=== PATIENT | female | born 1960 | race Two or more races ===

== ENCOUNTER 2023-05-31 16:38 | Inpatient (IN) | payer OTHER ==
[~2023-05-31] VITALS: Ht 160 cm; Wt 79.4 kg
[2023-05-31 18:18] LABS: Basophils # (auto) 0 10 ^3/uL (0-0.2); Basophils % (auto) 0.2 % (0.0-2.0); Eosinophils # (auto) 0 10 ^3/uL (0-0.8); Eosinophils % (auto) 0.1 % (0.0-7.0); Hematocrit 43.4 % (36.0-46.0); Lymphocytes # (auto) 0.9 10 ^3/uL (0.4-5.4); Lymphocytes % (auto) 8.8 % (10.0-50.0); Mean Corpuscular Hemoglobin 29.6 pg (28.0-32.0); Mean Corpuscular Hgb Conc. 34.5 g/dL (32.0-36.0); Mean Corpuscular Volume 85.8 fL (80.0-100.0); Monocytes # (auto) 0.8 10 ^3/uL (0-1.3); Monocytes % (auto) 7.5 % (0.0-12.0); Neutrophils # (auto) 8.7 10 ^3/uL (1.6-8.6); Neutrophils % (auto) 83.4 % (37.0-80.0); Red Blood Cells 5.06 10^6/uL (4.0-5.20); Red Cell Distribution Width 12.7 % (11.8-14.3); White Blood Cell 10.4 10^3/uL (4.4-10.8)
[2023-05-31 18:57] LABS: Alanine Aminotransferase 15 U/L (7-40); Albumin 4.2 g/dL (3.2-4.8); Alkaline Phosphatase 101 U/L (46-116); Anion Gap 10 (5-15); Aspartate Aminotransferase 16 U/L (13-40); Bilirubin, Total 0.9 mg/dL (0.2-1.0); Blood Urea Nitrogen 11 mg/dL (9-23); Carbon Dioxide 22 mmol/L (20-30); Chloride 92 mmol/L (98-107); Glucose 283 mg/dL (74-106); Potassium 3.6 mmol/L (3.5-5.1); Sodium 124 mmol/L (136-145)
[2023-05-31 18:58] LABS: Total Protein 7.1 g/dL (5.7-8.2)
[2023-05-31 19:10] LABS: Lipase 34 U/L (12-53)
[2023-05-31] MEDS ORDERED: SODIUM CHLORIDE 0.9% 1,000 ML IV ONE ×2 (20:15→21:15)
[2023-05-31] MEDS ORDERED: MORPHINE SULFATE INJ 2 MG/ml SYRG IV ONE (20:30)
[2023-05-31] MEDS ORDERED: PIPERACILLIN-TAZOB 3.375GM 100 ML IV ONE (20:30)
[2023-05-31] MEDS ORDERED: ONDANSETRON HCL 4 MG/2 ML VIAL IV ONE (20:30)
[2023-05-31] MEDS ORDERED: SODIUM CHLORIDE 0.9% 100 ML IV ONE (20:45)
[2023-05-31 21:19] LABS: INR 1.17 (0.9-1.15); Partial Thromboplastin Time 31.4 SEC (24.5-34.5); Prothrombin Time 12.2 sec (9.3-11.8)
[2023-05-31] MEDS ORDERED: ONDANSETRON HCL 4 MG/2 ML VIAL IV PRN (22:00)
[2023-05-31] MEDS: SODIUM CHLORIDE 0.9% 1,000 ML IV SCH (22:00)
[2023-05-31] MEDS ORDERED: DEXTROSE (50%) 50ML SYRG IV PRN (22:00)
[2023-06-01] VITALS (7 sets, daily range): BP systolic 148–149; BP diastolic 75–76; PULSE 90–101; RESP 16–20; TEMP 98.7–99.1; O2SAT 93–98
[2023-06-01] MEDS: ACCU-CHEK COMFORT CURVE STRIP VI SCH ×5 (01:20→23:41)
[2023-06-01] MEDS: InsuLIN REG 1unit/0.01ml Soln (100units/ml) SC SCH ×5 (01:24→23:55)
[2023-06-01 01:56] LABS: Urine Bacteria NONE SEEN /hpf (None Seen); Urine Blood 2+ /uL (Negative); Urine Clarity Clear (Clear); Urine Color Colorless (Yellow); Urine Mucus FEW (None Seen); Urine Protein, UAD 1+ (Negative); Urine Specific Gravity 1.027 (1.001-1.035); Urine Urobilinogen Normal (Negative); Urine WBC 2 /hpf (0 - 5); Urine pH 5.5 (5.0-8.0)
[2023-06-01] MEDS ORDERED: MORPHINE SULFATE INJ 2 MG/ml SYRG IM ONE (02:00)
[2023-06-01] MEDS ORDERED: ACETAMINOPHEN 325 MG TAB PO ONE (02:45)
[2023-06-01 06:20] LABS: Basophils # (auto) 0 10 ^3/uL (0-0.2); Basophils % (auto) 0.1 % (0.0-2.0); Eosinophils # (auto) 0 10 ^3/uL (0-0.8); Eosinophils % (auto) 0.1 % (0.0-7.0); Hematocrit 41.5 % (36.0-46.0); Hemoglobin 14.6 g/dL (12.2-16.2); Lymphocytes # (auto) 0.9 10 ^3/uL (0.4-5.4); Lymphocytes % (auto) 9.3 % (10.0-50.0); Mean Corpuscular Hgb Conc. 35.1 g/dL (32.0-36.0); Mean Corpuscular Volume 85.3 fL (80.0-100.0); Monocytes # (auto) 0.6 10 ^3/uL (0-1.3); Neutrophils # (auto) 8.2 10 ^3/uL (1.6-8.6); Neutrophils % (auto) 84.5 % (37.0-80.0); Nucleated Red Blood Cells % 0.1 %; Red Blood Cells 4.87 10^6/uL (4.0-5.20); Red Cell Distribution Width 12.4 % (11.8-14.3); White Blood Cell 9.7 10^3/uL (4.4-10.8)
[2023-06-01] MEDS: PIPERACILLIN-TAZOB 3.375GM 100 ML IV SCH ×5 (06:21→23:41)
[2023-06-01 06:36] LABS: Chloride 99 mmol/L (98-107); Potassium 3.2 mmol/L (3.5-5.1)
[2023-06-01 06:37] LABS: Anion Gap 11 (5-15); Calcium 8.2 mg/dL (8.5-10.1); Carbon Dioxide 19 mmol/L (20-30)
[2023-06-01 06:39] LABS: Sodium 129 mmol/L (136-145)
[2023-06-01 06:42] LABS: Blood Urea Nitrogen 9 mg/dL (9-23); Glucose 229 mg/dL (74-106)
[2023-06-01] MEDS: SODIUM CHLORIDE 0.9% 1,000 ML IV SCH ×2 (10:20→21:32)
[2023-06-01] MEDS: MORPHINE SULFATE INJ 2 MG/ml SYRG IV PRN (16:05)
[2023-06-02] MEDS: MORPHINE SULFATE INJ 2 MG/ml SYRG IV PRN (00:56)
[2023-06-02 05:00] VITALS: BP 140/77; PULSE 97; RESP 16; TEMP 98.3; O2SAT 98
[2023-06-02] MEDS: ACCU-CHEK COMFORT CURVE STRIP VI SCH ×4 (06:01→23:33)
[2023-06-02] MEDS: PIPERACILLIN-TAZOB 3.375GM 100 ML IV SCH ×3 (06:01→21:28)
[2023-06-02] MEDS: InsuLIN REG 1unit/0.01ml Soln (100units/ml) SC SCH ×4 (06:10→23:33)
[2023-06-02 06:12] LABS: Basophils # (auto) 0 10 ^3/uL (0-0.2); Basophils % (auto) 0.1 % (0.0-2.0); Eosinophils # (auto) 0 10 ^3/uL (0-0.8); Eosinophils % (auto) 0.1 % (0.0-7.0); Hematocrit 42.7 % (36.0-46.0); Hemoglobin 14.6 g/dL (12.2-16.2); Lymphocytes % (auto) 7.3 % (10.0-50.0); Mean Corpuscular Hemoglobin 29.4 pg (28.0-32.0); Mean Corpuscular Hgb Conc. 34.3 g/dL (32.0-36.0); Mean Corpuscular Volume 85.9 fL (80.0-100.0); Monocytes # (auto) 1.1 10 ^3/uL (0-1.3); Monocytes % (auto) 8.2 % (0.0-12.0); Neutrophils # (auto) 11.5 10 ^3/uL (1.6-8.6); Neutrophils % (auto) 84.3 % (37.0-80.0); Nucleated Red Blood Cells % 0.1 %; Red Blood Cells 4.97 10^6/uL (4.0-5.20); Red Cell Distribution Width 12.9 % (11.8-14.3); White Blood Cell 13.7 10^3/uL (4.4-10.8)
[2023-06-02 06:15] LABS: Anion Gap 12 (5-15); Calcium 8.2 mg/dL (8.5-10.1); Carbon Dioxide 20 mmol/L (20-30); Chloride 100 mmol/L (98-107); Potassium 2.7 mmol/L (3.5-5.1); Sodium 132 mmol/L (136-145)
[2023-06-02 06:21] LABS: BUN/Creatinine Ratio 20.4 (10.0-20.0); Blood Urea Nitrogen 10 mg/dL (9-23); Glucose 189 mg/dL (74-106)
[2023-06-02] MEDS ORDERED: POTASSIUM CHLORIDE 80 MEQ, LIDOCAINE 1% (LOCAL ANESTH.) 6 ML in SODIUM CHL 0.9% 500 ML IV ONE (08:45)
[2023-06-02 08:59] VITALS: BP 140/78; PULSE 94; RESP 18; TEMP 98.2; O2SAT 94
[2023-06-02] MEDS: SODIUM CHLORIDE 0.9% 1,000 ML IV SCH ×2 (09:18→21:29)
[2023-06-02 13:00] VITALS: BP 131/74; PULSE 94; RESP 18; TEMP 97.8; O2SAT 93
[2023-06-02 17:00] VITALS: BP 139/73; PULSE 100; RESP 20; TEMP 99.2; O2SAT 93
[2023-06-02 22:00] VITALS: BP 145/70; PULSE 93; RESP 18; TEMP 98.3; O2SAT 93
[2023-06-03] MEDS: PIPERACILLIN-TAZOB 3.375GM 100 ML IV SCH ×4 (03:17→23:19)
[2023-06-03 05:00] VITALS: BP 133/76; PULSE 102; RESP 19; TEMP 99.3; O2SAT 95
[2023-06-03 05:31] LABS: Basophils # (auto) 0.1 10 ^3/uL (0-0.2); Basophils % (auto) 0.3 % (0.0-2.0); Eosinophils # (auto) 0 10 ^3/uL (0-0.8); Eosinophils % (auto) 0.1 % (0.0-7.0); Hematocrit 39.7 % (36.0-46.0); Hemoglobin 13.6 g/dL (12.2-16.2); Lymphocytes # (auto) 1.2 10 ^3/uL (0.4-5.4); Lymphocytes % (auto) 6.8 % (10.0-50.0); Mean Corpuscular Hemoglobin 29.5 pg (28.0-32.0); Mean Corpuscular Hgb Conc. 34.3 g/dL (32.0-36.0); Mean Corpuscular Volume 85.9 fL (80.0-100.0); Monocytes # (auto) 1.6 10 ^3/uL (0-1.3); Neutrophils # (auto) 14.7 10 ^3/uL (1.6-8.6); Neutrophils % (auto) 83.8 % (37.0-80.0); Nucleated Red Blood Cells % 0.1 %; Red Blood Cells 4.63 10^6/uL (4.0-5.20); Red Cell Distribution Width 13.3 % (11.8-14.3); White Blood Cell 17.5 10^3/uL (4.4-10.8)
[2023-06-03 05:54] LABS: Alanine Aminotransferase 14 U/L (7-40); Albumin 3.2 g/dL (3.2-4.8); Alkaline Phosphatase 101 U/L (46-116); Anion Gap 12 (5-15); Aspartate Aminotransferase 17 U/L (13-40); BUN/Creatinine Ratio 33.3 (10.0-20.0); Blood Urea Nitrogen 15 mg/dL (9-23); Calcium 8.3 mg/dL (8.5-10.1); Carbon Dioxide 20 mmol/L (20-30); Chloride 104 mmol/L (98-107); Glucose 238 mg/dL (74-106); Potassium 3.4 mmol/L (3.5-5.1); Sodium 136 mmol/L (136-145)
[2023-06-03 05:55] LABS: Bilirubin, Total 0.5 mg/dL (0.2-1.0); Total Protein 5.6 g/dL (5.7-8.2)
[2023-06-03] MEDS: InsuLIN REG 1unit/0.01ml Soln (100units/ml) SC SCH ×4 (06:41→23:40)
[2023-06-03] MEDS: ACCU-CHEK COMFORT CURVE STRIP VI SCH ×4 (06:41→23:40)
[2023-06-03 09:00] VITALS: BP 134/72; PULSE 90; RESP 18; TEMP 98.9; O2SAT 93
[2023-06-03] MEDS: SODIUM CHLORIDE 0.9% 1,000 ML IV SCH ×2 (09:20→20:36)
[2023-06-03 13:00] VITALS: BP 146/70; PULSE 93; RESP 17; TEMP 98.7; O2SAT 92
[2023-06-03] MEDS ORDERED: LIDOCAINE 2%HCL (LOCAL ANESTH.) INJ 10ml MDV ONE (13:17)
[2023-06-03] MEDS ORDERED: EPINEPHrine HCL 1 MG/1 ML AMP ONE (13:18)
[2023-06-03] MEDS ORDERED: ACETAMINOPHEN IV 1000 MG/100ML (10MG/ML) IV ONE (13:30)
[2023-06-03] MEDS ORDERED: GABAPENTIN 400 MG CAP PO ONE (13:30)
[2023-06-03] MEDS ORDERED: CELECOXIB 100 MG CAP PO ONE (13:30)
[2023-06-03] MEDS ORDERED: LIDOCAINE W/ EPINEPHRINE 2% INJ 20ML VIAL ONE (13:31)
[2023-06-03] MEDS ORDERED: BUPIVACAINE 0.5% P/F INJ 10 ML VIAL ONE (13:31)
[2023-06-03] MEDS ORDERED: PROPOFOL 10 MG/ML 20 ML IV ONE (13:41)
[2023-06-03] MEDS ORDERED: ONDANSETRON HCL 4 MG/2 ML VIAL ONE (13:42)
[2023-06-03] MEDS ORDERED: GLYCOPYRROLATE 0.2 MG/ML 1ML VIAL ONE (13:42)
[2023-06-03] MEDS ORDERED: SUGAMMADEX 200mg/2ml Vial (100MG/ML) IV ONE (13:42)
[2023-06-03] MEDS ORDERED: KETOROLAC TROMETH 30 MG/ML 1ML VIAL ONE (13:42)
[2023-06-03] MEDS ORDERED: ROCURONIUM 10MG/ML 10ML VIAL IV ONE (13:42)
[2023-06-03] MEDS ORDERED: fentaNYL CITRATE 100 MCG/2 ML VL ONE (13:42)
[2023-06-03] MEDS ORDERED: DexAMETHasone SOD PHOS 10MG/1ML VIAL INJ ONE ×2 (13:42→14:38)
[2023-06-03] MEDS ORDERED: ceFAZolin 2 GM/D5W100ml 100 ML IV ONE (14:00)
[2023-06-03] MEDS ORDERED: SODIUM CHLORIDE LOCK 30 ML ONE (14:38)
[2023-06-03] MEDS ORDERED: ONDANSETRON HCL 4 MG/2 ML VIAL IV PRN ×2 (15:15→15:45)
[2023-06-03] MEDS: POTASSIUM CHLORIDE 20 MEQ in D5W/LACTATED RINGERS 1,000 ML IV SCH (15:15)
[2023-06-03] MEDS: SOD CHL 0.45% 1,000 ML IV SCH (15:15)
[2023-06-03 15:21] VITALS: RESP 17; O2SAT 97
[2023-06-03] MEDS ORDERED: oxyCODONE HCL 5MG TAB PO PRN (15:45)
[2023-06-03] MEDS ORDERED: FLUMAZENIL 0.1 MG/ML INJ 10ML MDV IV PRN (15:45)
[2023-06-03] MEDS ORDERED: hydrALAZINE HCL 20 MG/ML VL IV PRN (15:45)
[2023-06-03] MEDS ORDERED: NALOXONE HCL 0.4 MG/ML VIAL IV PRN (15:45)
[2023-06-03] MEDS ORDERED: HYDROmorphone HCL 2 MG/ML VL/or syr IV PRN (15:45)
[2023-06-03] MEDS ORDERED: fentaNYL CITRATE 100 MCG/2 ML VL IV PRN (15:45)
[2023-06-03] MEDS ORDERED: ePHEDrine SULFATE 50 MG/ML AMP IV PRN (15:45)
[2023-06-03] MEDS ORDERED: LABETALOL HCL 5 MG/ML 4ML SYRINGE IV PRN (15:45)
[2023-06-03 17:00] VITALS: BP 145/78; PULSE 94; RESP 17; TEMP 98.7; O2SAT 92
[2023-06-03] MEDS: metroNIDAZOLE 500MG/100ML 100 ML IV SCH (20:25)
[2023-06-03 22:00] VITALS: BP 139/70; PULSE 87; RESP 16; TEMP 98; O2SAT 95
[2023-06-04] MEDS: POTASSIUM CHLORIDE 20 MEQ in D5W/LACTATED RINGERS 1,000 ML IV SCH ×3 (01:21→21:33)
[2023-06-04 05:00] VITALS: BP 134/76; PULSE 82; RESP 16; TEMP 98.8; O2SAT 92
[2023-06-04] MEDS: metroNIDAZOLE 500MG/100ML 100 ML IV SCH ×3 (05:37→20:25)
[2023-06-04] MEDS: SOD CHL 0.45% 1,000 ML IV SCH ×2 (05:40→17:14)
[2023-06-04] MEDS: ACCU-CHEK COMFORT CURVE STRIP VI SCH ×4 (06:00→23:41)
[2023-06-04] MEDS: PIPERACILLIN-TAZOB 3.375GM 100 ML IV SCH ×3 (06:42→22:25)
[2023-06-04] MEDS: InsuLIN REG 1unit/0.01ml Soln (100units/ml) SC SCH ×4 (06:46→23:46)
[2023-06-04 07:22] LABS: Basophils # (auto) 0 10 ^3/uL (0-0.2); Basophils % (auto) 0.1 % (0.0-2.0); Eosinophils # (auto) 0 10 ^3/uL (0-0.8); Hematocrit 38.7 % (36.0-46.0); Hemoglobin 12.9 g/dL (12.2-16.2); Lymphocytes # (auto) 1.4 10 ^3/uL (0.4-5.4); Lymphocytes % (auto) 7.7 % (10.0-50.0); Mean Corpuscular Hemoglobin 28.9 pg (28.0-32.0); Mean Corpuscular Hgb Conc. 33.4 g/dL (32.0-36.0); Mean Corpuscular Volume 86.5 fL (80.0-100.0); Monocytes # (auto) 0.9 10 ^3/uL (0-1.3); Neutrophils # (auto) 15.8 10 ^3/uL (1.6-8.6); Neutrophils % (auto) 87.2 % (37.0-80.0); Red Blood Cells 4.47 10^6/uL (4.0-5.20); Red Cell Distribution Width 13.2 % (11.8-14.3); White Blood Cell 18.1 10^3/uL (4.4-10.8)
[2023-06-04 08:00] VITALS: BP 135/75; PULSE 75; RESP 20; TEMP 98.4; O2SAT 92
[2023-06-04 08:00] LABS: Albumin 3.1 g/dL (3.2-4.8); Alkaline Phosphatase 111 U/L (46-116); Anion Gap 15 (5-15); BUN/Creatinine Ratio 34.6 (10.0-20.0); Bilirubin, Total 0.4 mg/dL (0.2-1.0); Blood Urea Nitrogen 18 mg/dL (9-23); Calcium 7.9 mg/dL (8.5-10.1); Carbon Dioxide 19 mmol/L (20-30); Chloride 109 mmol/L (98-107); Glucose 274 mg/dL (74-106); Potassium 3.1 mmol/L (3.5-5.1); Sodium 143 mmol/L (136-145); Total Protein 5.6 g/dL (5.7-8.2)
[2023-06-04 08:19] LABS: Alanine Aminotransferase 13 U/L (7-40); Aspartate Aminotransferase 18 U/L (13-40)
[2023-06-04] MEDS: SODIUM CHLORIDE 0.9% 1,000 ML IV SCH ×2 (08:22→20:08)
[2023-06-04] MEDS: PANTOPRAZOLE 40 MG/10 ML VIAL INJ IV SCH (09:47)
[2023-06-04 12:00] VITALS: BP 115/64; PULSE 65; RESP 20; TEMP 98.7; O2SAT 91
[2023-06-04 16:00] VITALS: BP 121/67; PULSE 68; RESP 20; TEMP 98.6; O2SAT 91
[2023-06-04 20:00] VITALS: PULSE 81; RESP 16
[2023-06-04 22:00] VITALS: BP 126/70; PULSE 81; RESP 16; TEMP 98.3; O2SAT 93
[2023-06-05] MEDS: metroNIDAZOLE 500MG/100ML 100 ML IV SCH ×3 (03:46→20:09)
[2023-06-05 05:00] VITALS: BP 131/70; PULSE 66; RESP 16; TEMP 98.3; O2SAT 91
[2023-06-05] MEDS: InsuLIN REG 1unit/0.01ml Soln (100units/ml) SC SCH ×4 (05:57→23:30)
[2023-06-05] MEDS: PIPERACILLIN-TAZOB 3.375GM 100 ML IV SCH ×3 (05:58→21:45)
[2023-06-05] MEDS: ACCU-CHEK COMFORT CURVE STRIP VI SCH ×4 (05:58→23:30)
[2023-06-05] MEDS: POTASSIUM CHLORIDE 20 MEQ in D5W/LACTATED RINGERS 1,000 ML IV SCH ×2 (05:59→17:47)
[2023-06-05] MEDS: SOD CHL 0.45% 1,000 ML IV SCH ×2 (07:15→20:35)
[2023-06-05 07:27] LABS: Basophils # (auto) 0.1 10 ^3/uL (0-0.2); Basophils % (auto) 0.3 % (0.0-2.0); Eosinophils # (auto) 0 10 ^3/uL (0-0.8); Eosinophils % (auto) 0.2 % (0.0-7.0); Hematocrit 38.9 % (36.0-46.0); Hemoglobin 12.8 g/dL (12.2-16.2); Lymphocytes # (auto) 2.3 10 ^3/uL (0.4-5.4); Mean Corpuscular Hemoglobin 28.9 pg (28.0-32.0); Mean Corpuscular Hgb Conc. 32.9 g/dL (32.0-36.0); Mean Corpuscular Volume 87.6 fL (80.0-100.0); Monocytes # (auto) 1.1 10 ^3/uL (0-1.3); Monocytes % (auto) 7.6 % (0.0-12.0); Neutrophils # (auto) 11.5 10 ^3/uL (1.6-8.6); Neutrophils % (auto) 76.9 % (37.0-80.0); Red Blood Cells 4.44 10^6/uL (4.0-5.20); Red Cell Distribution Width 13.5 % (11.8-14.3)
[2023-06-05 07:29] LABS: Alanine Aminotransferase 12 U/L (7-40); Albumin 2.9 g/dL (3.2-4.8); Alkaline Phosphatase 104 U/L (46-116); Anion Gap 6 (5-15); Aspartate Aminotransferase 13 U/L (13-40); BUN/Creatinine Ratio 33.3 (10.0-20.0); Blood Urea Nitrogen 15 mg/dL (9-23); Calcium 7.9 mg/dL (8.5-10.1); Carbon Dioxide 26 mmol/L (20-30); Chloride 109 mmol/L (98-107); Glucose 268 mg/dL (74-106); Potassium 3.5 mmol/L (3.5-5.1); Sodium 141 mmol/L (136-145)
[2023-06-05 07:30] LABS: Bilirubin, Total 0.4 mg/dL (0.2-1.0); Total Protein 5.4 g/dL (5.7-8.2)
[2023-06-05] MEDS: SODIUM CHLORIDE 0.9% 1,000 ML IV SCH ×3 (07:54→20:09)
[2023-06-05 08:00] VITALS: BP 129/71; PULSE 71; RESP 16; TEMP 97.9; O2SAT 92
[2023-06-05] MEDS: PANTOPRAZOLE 40 MG/10 ML VIAL INJ IV SCH (08:10)
[2023-06-05 08:20] VITALS: BP 129/71; PULSE 71; RESP 16; TEMP 97.9
[2023-06-05 13:00] VITALS: BP 122/71; PULSE 65; RESP 16; TEMP 98.5; O2SAT 93
[2023-06-05 20:00] VITALS: RESP 16
[2023-06-05 22:00] VITALS: BP 143/80; PULSE 81; RESP 19; TEMP 98.4; O2SAT 93
[2023-06-06] VITALS (7 sets, daily range): BP systolic 99–140; BP diastolic 58–80; PULSE 77–101; RESP 18–21; TEMP 98–98.4; O2SAT 94–98
[2023-06-06] MEDS: metroNIDAZOLE 500MG/100ML 100 ML IV SCH ×3 (03:49→21:12)
[2023-06-06] MEDS: POTASSIUM CHLORIDE 20 MEQ in D5W/LACTATED RINGERS 1,000 ML IV SCH ×2 (03:51→13:57)
[2023-06-06] MEDS: PIPERACILLIN-TAZOB 3.375GM 100 ML IV SCH ×3 (06:19→22:23)
[2023-06-06] MEDS: InsuLIN REG 1unit/0.01ml Soln (100units/ml) SC SCH ×4 (06:20→23:14)
[2023-06-06] MEDS: ACCU-CHEK COMFORT CURVE STRIP VI SCH ×4 (06:20→23:13)
[2023-06-06] MEDS: SODIUM CHLORIDE 0.9% 1,000 ML IV SCH (07:26)
[2023-06-06] MEDS: SOD CHL 0.45% 1,000 ML IV SCH (09:55)
[2023-06-06] MEDS: PANTOPRAZOLE 40 MG/10 ML VIAL INJ IV SCH (10:02)
[2023-06-07] MEDS: metroNIDAZOLE 500MG/100ML 100 ML IV SCH ×2 (04:00→12:20)
[2023-06-07 05:00] VITALS: BP 140/74; PULSE 85; RESP 18; TEMP 98.8; O2SAT 96
[2023-06-07] MEDS: ACCU-CHEK COMFORT CURVE STRIP VI SCH ×2 (05:26→12:20)
[2023-06-07] MEDS: PIPERACILLIN-TAZOB 3.375GM 100 ML IV SCH ×2 (05:26→14:00)
[2023-06-07] MEDS: InsuLIN REG 1unit/0.01ml Soln (100units/ml) SC SCH ×2 (05:28→12:35)
[2023-06-07 08:00] VITALS: BP 145/87; PULSE 89; RESP 21; TEMP 99.3; O2SAT 96
[2023-06-07 09:00] VITALS: BP 145/87; PULSE 89; RESP 21; TEMP 99.3; O2SAT 96
[2023-06-07] MEDS: PANTOPRAZOLE 40 MG/10 ML VIAL INJ IV SCH (09:50)
[2023-06-07] MEDS ORDERED: METF-490 PO (10:33)
[2023-06-07] MEDS ORDERED: HYDR-4902 PO (10:33)
[2023-06-07] MEDS ORDERED: METR-344 PO (10:33)
[2023-06-07] MEDS ORDERED: LEVO500T91 PO (10:33)
[2023-06-07 13:00] VITALS: BP 144/74; PULSE 83; RESP 17; TEMP 98.6; O2SAT 96
== END 2023-06-07 15:58 | disposition home or self-care (01) | DRG 710 ==
LOC: ER 16:38 → OVERFLOW 21:51 → EAST 06-01 17:05
PROVIDERS: ADMIT Nurse Practitioner; ATTEND Family Medicine
PROC: 0DTJ0ZZ Resection of Appendix, Open Approach (ICD-10-PCS; principal; 2023-06-03 14:19)
DX: A41.9 Sepsis, unspecified organism (principal); K35.32 Acute appendicitis with perforation, localized peritonitis, and gangrene, without abscess; R18.8 Other ascites; E87.1 Hypo-osmolality and hyponatremia; E86.0 Dehydration; N73.9 Female pelvic inflammatory disease, unspecified; E11.65 Type 2 diabetes mellitus with hyperglycemia
CPT/HCPCS: 36415; 71045; 74176; 80048; 80053; 81001; 82962; 83690; 85025; 85610; 85730; 86850; 86900; 86901; 87070; 87075; 87205; 97163; C9113; G0378; J0131; J0171; J1100; J1815; J1885; J2001; J2405; J2543; J2704; J3490

== ENCOUNTER 2023-06-10 22:28 | Inpatient (IN) | payer OTHER ==
[~2023-06-10] VITALS: Ht 162.6 cm; Wt 68.0 kg
[~2023-06-10 22:28] MED LIST: HYDR-4902 PO; LEVO500T91 PO; METF-490 PO; METR-344 PO
[2023-06-10] MEDS ORDERED: SODIUM CHLORIDE 0.9% 2,150 ML IV ONE (23:45)
[2023-06-10] MEDS ORDERED: VANCOMYCIN 1GM/200ML 250 ML IV ONE (23:45)
[2023-06-10] MEDS ORDERED: IOHEXOL 300 MG/ML 100ML BOTTLE IJ ONE (23:52)
[2023-06-11] VITALS (7 sets, daily range): BP systolic 95–116; BP diastolic 56–73; PULSE 77–91; RESP 16–18; TEMP 97.8–98.3; O2SAT 94–97
[2023-06-11] MEDS ORDERED: VANCOMYCIN PER PHARMACY 0 MG IV SCH
[2023-06-11] MEDS ORDERED: PIPERACILLIN-TAZOB 3.375GM 100 ML IV ONE
[2023-06-11] MEDS ORDERED: metroNIDAZOLE 500MG/100ML 100 ML IV ONE
[2023-06-11] MEDS ORDERED: HALOPERIDOL LACTATE 5 MG/ML INJ VIAL IM ONE ×2 (00:45→06:00)
[2023-06-11 00:50] LABS: Urine Bacteria NONE SEEN /hpf (None Seen); Urine Blood Negative /uL (Negative); Urine Clarity Clear (Clear); Urine Color Colorless (Yellow); Urine Protein, UAD Negative (Negative); Urine Specific Gravity 1.004 (1.001-1.035); Urine Urobilinogen Normal (Negative); Urine WBC <1 /hpf (0 - 5)
[2023-06-11 01:20] LABS: Basophils # (auto) 0 10 ^3/uL (0-0.2); Basophils % (auto) 0.1 % (0.0-2.0); Eosinophils # (auto) 0 10 ^3/uL (0-0.8); Eosinophils % (auto) 0.3 % (0.0-7.0); Hematocrit 37.2 % (36.0-46.0); Hemoglobin 12.3 g/dL (12.2-16.2); Lymphocytes # (auto) 1.4 10 ^3/uL (0.4-5.4); Mean Corpuscular Hemoglobin 29.2 pg (28.0-32.0); Mean Corpuscular Hgb Conc. 32.9 g/dL (32.0-36.0); Mean Corpuscular Volume 88.7 fL (80.0-100.0); Monocytes # (auto) 1.1 10 ^3/uL (0-1.3); Monocytes % (auto) 10.1 % (0.0-12.0); Neutrophils # (auto) 8.8 10 ^3/uL (1.6-8.6); Neutrophils % (auto) 77.5 % (37.0-80.0); Red Cell Distribution Width 13.1 % (11.8-14.3); White Blood Cell 11.3 10^3/uL (4.4-10.8)
[2023-06-11 01:36] LABS: INR 1.14 (0.9-1.15); Partial Thromboplastin Time 27.1 SEC (24.5-34.5); Prothrombin Time 11.9 sec (9.3-11.8)
[2023-06-11 01:47] LABS: Acetaminophen < 2.0 UG/ML (10.0-20.0)
[2023-06-11 01:48] LABS: Amphetamine Screen, Urine Neg (NEGATIVE); Benzodiazephine Screen, Urine Neg (NEGATIVE)
[2023-06-11 01:48] LABS: Salicylate < 3.0 mg/dL (2.8-20.0)
[2023-06-11 01:49] LABS: Barbiturate Scree,Urine Neg (NEGATIVE); Cannabinoid Screen, Urine Neg (NEGATIVE); Cocaine Screen, Urine Neg (NEGATIVE); Opiate Scree,Urine Neg (NEGATIVE); Phencyclidine Screen, Urine Neg (NEGATIVE)
[2023-06-11 01:49] LABS: Alanine Aminotransferase 20 U/L (7-40); Albumin 3.6 g/dL (3.2-4.8); Alkaline Phosphatase 97 U/L (46-116); Anion Gap 7 (5-15); Aspartate Aminotransferase 23 U/L (13-40); BUN/Creatinine Ratio 13.2 (10.0-20.0); Bilirubin, Total 0.4 mg/dL (0.2-1.0); Blood Alcohol < 3.0 mg/dL (<10); Blood Urea Nitrogen 7 mg/dL (9-23); Calcium 8.8 mg/dL (8.7-10.4); Carbon Dioxide 27 mmol/L (20-30); Chloride 96 mmol/L (98-107); Glucose 372 mg/dL (74-106); Magnesium 1.8 mg/dL (1.6-2.6); Sodium 130 mmol/L (136-145); Total Protein 6.5 g/dL (5.7-8.2)
[2023-06-11 02:02] LABS: Erythrocyte Sedimentation Rate 62 mm/hr (0-20)
[2023-06-11] MEDS ORDERED: MORPHINE SULFATE INJ 2 MG/ml SYRG IV PRN (05:15)
[2023-06-11] MEDS ORDERED: ACETAMINOPHEN 325 MG TAB PO PRN (05:15)
[2023-06-11] MEDS ORDERED: DEXTROSE (50%) 50ML SYRG IV PRN (05:15)
[2023-06-11] MEDS ORDERED: ONDANSETRON HCL 4 MG/2 ML VIAL IV PRN (05:15)
[2023-06-11] MEDS: SODIUM CHLORIDE 0.9% 1,000 ML IV SCH ×2 (05:39→21:10)
[2023-06-11 06:00] LABS: Basophils # (auto) 0 10 ^3/uL (0-0.2); Basophils % (auto) 0.4 % (0.0-2.0); Eosinophils # (auto) 0.1 10 ^3/uL (0-0.8); Eosinophils % (auto) 0.7 % (0.0-7.0); Hematocrit 35.5 % (36.0-46.0); Hemoglobin 11.9 g/dL (12.2-16.2); Lymphocytes # (auto) 1.7 10 ^3/uL (0.4-5.4); Lymphocytes % (auto) 14.9 % (10.0-50.0); Mean Corpuscular Hemoglobin 28.9 pg (28.0-32.0); Mean Corpuscular Hgb Conc. 33.4 g/dL (32.0-36.0); Mean Corpuscular Volume 86.6 fL (80.0-100.0); Monocytes # (auto) 1.2 10 ^3/uL (0-1.3); Monocytes % (auto) 10.4 % (0.0-12.0); Neutrophils # (auto) 8.2 10 ^3/uL (1.6-8.6); Neutrophils % (auto) 73.6 % (37.0-80.0); Red Cell Distribution Width 12.9 % (11.8-14.3); White Blood Cell 11.2 10^3/uL (4.4-10.8)
[2023-06-11] MEDS ORDERED: LORazepam 2MG/ML-1ML VIAL IV ONE (06:00)
[2023-06-11 06:08] LABS: Alanine Aminotransferase 20 U/L (7-40); Albumin 3.3 g/dL (3.2-4.8); Alkaline Phosphatase 83 U/L (46-116); Anion Gap 11 (5-15); Aspartate Aminotransferase 20 U/L (13-40); Calcium 8.4 mg/dL (8.5-10.1); Carbon Dioxide 23 mmol/L (20-30); Chloride 101 mmol/L (98-107); Glucose 282 mg/dL (74-106); Potassium 3.7 mmol/L (3.5-5.1)
[2023-06-11 06:09] LABS: Bilirubin, Total 0.4 mg/dL (0.2-1.0); Total Protein 5.9 g/dL (5.7-8.2)
[2023-06-11 06:18] LABS: COVID19 ANTIGEN SOFIA FIA NEGATIVE (NEGATIVE)
[2023-06-11 06:21] LABS: Sodium 135 mmol/L (136-145)
[2023-06-11 06:22] LABS: BUN/Creatinine Ratio 11.1 (10.0-20.0); Blood Urea Nitrogen < 5 mg/dL (9-23)
[2023-06-11] MEDS: ACCU-CHEK COMFORT CURVE STRIP VI SCH ×3 (06:44→18:00)
[2023-06-11] MEDS: InsuLIN REG 1unit/0.01ml Soln (100units/ml) SC SCH ×3 (06:48→18:00)
[2023-06-11] MEDS: metroNIDAZOLE 500MG/100ML 100 ML IV SCH ×3 (08:54→21:09)
[2023-06-11] MEDS: VANCOMYCIN 1GM/200ML 250 ML IV SCH (12:56)
[2023-06-11 13:08] LABS: Base Excess 0.5 mmol/L (-2.0-2.0)
[2023-06-12] MEDS: ACCU-CHEK COMFORT CURVE STRIP VI SCH ×4 (00:33→18:00)
[2023-06-12] MEDS: InsuLIN REG 1unit/0.01ml Soln (100units/ml) SC SCH ×4 (00:34→18:00)
[2023-06-12] MEDS: VANCOMYCIN 1GM/200ML 250 ML IV SCH ×2 (01:01→14:00)
[2023-06-12 05:00] VITALS: BP 132/74; PULSE 91; RESP 18; TEMP 98.7; O2SAT 95
[2023-06-12] MEDS: metroNIDAZOLE 500MG/100ML 100 ML IV SCH ×3 (05:13→22:26)
[2023-06-12 06:06] LABS: Basophils # (auto) 0 10 ^3/uL (0-0.2); Basophils % (auto) 0.3 % (0.0-2.0); Eosinophils # (auto) 0.1 10 ^3/uL (0-0.8); Eosinophils % (auto) 0.8 % (0.0-7.0); Hematocrit 35.8 % (36.0-46.0); Hemoglobin 12.1 g/dL (12.2-16.2); Lymphocytes # (auto) 1.4 10 ^3/uL (0.4-5.4); Mean Corpuscular Hemoglobin 29.7 pg (28.0-32.0); Mean Corpuscular Hgb Conc. 33.8 g/dL (32.0-36.0); Mean Corpuscular Volume 87.8 fL (80.0-100.0); Monocytes % (auto) 8.8 % (0.0-12.0); Neutrophils # (auto) 8.4 10 ^3/uL (1.6-8.6); Neutrophils % (auto) 77.1 % (37.0-80.0); Red Blood Cells 4.08 10^6/uL (4.0-5.20); Red Cell Distribution Width 13.2 % (11.8-14.3); White Blood Cell 10.9 10^3/uL (4.4-10.8)
[2023-06-12 06:32] LABS: Alanine Aminotransferase 19 U/L (7-40); Albumin 3.2 g/dL (3.2-4.8); Alkaline Phosphatase 69 U/L (46-116); Anion Gap 12 (5-15); Aspartate Aminotransferase 28 U/L (13-40); Calcium 8.2 mg/dL (8.5-10.1); Carbon Dioxide 23 mmol/L (20-30); Chloride 104 mmol/L (98-107); Glucose 184 mg/dL (74-106); LDL Cholesterol 61 mg/dL (< 100); Potassium 3.2 mmol/L (3.5-5.1); Sodium 139 mmol/L (136-145); Triglycerides 83 mg/dL (< 150)
[2023-06-12 06:33] LABS: Bilirubin, Total 0.3 mg/dL (0.2-1.0); Cholesterol 111 mg/dL (< 200); HDL Cholesterol 33 mg/dL (40-59); Total Protein 5.8 g/dL (5.7-8.2)
[2023-06-12 06:36] LABS: BUN/Creatinine Ratio 12.5 (10.0-20.0); Blood Urea Nitrogen < 5 mg/dL (9-23)
[2023-06-12 06:41] LABS: CRP High Sensitivity 3.72 mg/dL (<1.0)
[2023-06-12 06:53] LABS: Lipase 43 U/L (12-53); Magnesium 1.8 mg/dL (1.6-2.6)
[2023-06-12 09:00] VITALS: BP 127/69; PULSE 89; RESP 18; TEMP 99.1; O2SAT 95
[2023-06-12] MEDS ORDERED: cefTRIAXone 1GM/50ML D5W 50 ML IV ONE (09:15)
[2023-06-12 12:19] VITALS: BP 141/66; PULSE 94; RESP 20; TEMP 98.7; O2SAT 93
[2023-06-12] MEDS: SODIUM CHLORIDE 0.9% 1,000 ML IV SCH (14:35)
[2023-06-12 16:19] VITALS: BP 140/68; PULSE 90; RESP 18; TEMP 98.8; O2SAT 96
[2023-06-12 22:00] VITALS: BP 153/79; PULSE 100; RESP 19; TEMP 97.7; O2SAT 93
[2023-06-13] MEDS: VANCOMYCIN 1GM/200ML 250 ML IV SCH ×3 (00:16→20:06)
[2023-06-13] MEDS: ACCU-CHEK COMFORT CURVE STRIP VI SCH ×4 (00:16→18:00)
[2023-06-13] MEDS: InsuLIN REG 1unit/0.01ml Soln (100units/ml) SC SCH ×4 (00:26→18:00)
[2023-06-13 05:00] VITALS: BP 139/78; PULSE 139; RESP 78; TEMP 98.1; O2SAT 95
[2023-06-13] MEDS: metroNIDAZOLE 500MG/100ML 100 ML IV SCH ×3 (06:19→22:23)
[2023-06-13 06:53] LABS: Basophils # (auto) 0 10 ^3/uL (0-0.2); Basophils % (auto) 0.4 % (0.0-2.0); Eosinophils # (auto) 0 10 ^3/uL (0-0.8); Eosinophils % (auto) 0.5 % (0.0-7.0); Hemoglobin 12.9 g/dL (12.2-16.2); Lymphocytes # (auto) 1.3 10 ^3/uL (0.4-5.4); Lymphocytes % (auto) 13.5 % (10.0-50.0); Mean Corpuscular Hemoglobin 29.5 pg (28.0-32.0); Mean Corpuscular Hgb Conc. 33.9 g/dL (32.0-36.0); Mean Corpuscular Volume 86.9 fL (80.0-100.0); Monocytes # (auto) 1.1 10 ^3/uL (0-1.3); Monocytes % (auto) 11.5 % (0.0-12.0); Neutrophils % (auto) 74.1 % (37.0-80.0); Nucleated Red Blood Cells % 0.1 %; Red Blood Cells 4.38 10^6/uL (4.0-5.20); Red Cell Distribution Width 13.2 % (11.8-14.3); White Blood Cell 9.5 10^3/uL (4.4-10.8)
[2023-06-13 06:59] LABS: Chloride 105 mmol/L (98-107); Potassium 2.8 mmol/L (3.5-5.1); Sodium 139 mmol/L (136-145)
[2023-06-13 07:00] LABS: Anion Gap 9 (5-15); Carbon Dioxide 25 mmol/L (20-30)
[2023-06-13 07:05] LABS: Glucose 157 mg/dL (74-106)
[2023-06-13 07:10] LABS: BUN/Creatinine Ratio 11.9 (10.0-20.0); Blood Urea Nitrogen < 5 mg/dL (9-23)
[2023-06-13] MEDS ORDERED: POTASSIUM CHLORIDE 40 MEQ, LIDOCAINE 1% (LOCAL ANESTH.) 4 ML in SODIUM CHL 0.9% 250 ML IV ONE (07:45)
[2023-06-13] MEDS ORDERED: CALCIUM CHL 100MG/ML 500 MG in D5W 5% 100 ML IV ONE (07:45)
[2023-06-13 08:52] VITALS: BP 155/84; PULSE 92; RESP 18; TEMP 98.4; O2SAT 95
[2023-06-13] MEDS: SODIUM CHLORIDE 0.9% 1,000 ML IV SCH (10:54)
[2023-06-13] MEDS: cefTRIAXone 1GM/50ML D5W 50 ML IV SCH (10:55)
[2023-06-13] MEDS: ENOXAPARIN SOD 40 MG/0.4 ML SYRINGE SC SCH (10:56)
[2023-06-13 13:00] VITALS: BP 153/79; PULSE 92; RESP 18; TEMP 98.7; O2SAT 96
[2023-06-13 22:00] VITALS: BP 138/78; PULSE 87; RESP 16; TEMP 98.5; O2SAT 98
[2023-06-14] MEDS: ACCU-CHEK COMFORT CURVE STRIP VI SCH ×5 (00:06→23:26)
[2023-06-14] MEDS: InsuLIN REG 1unit/0.01ml Soln (100units/ml) SC SCH ×5 (00:06→23:27)
[2023-06-14] MEDS: SODIUM CHLORIDE 0.9% 1,000 ML IV SCH ×2 (03:59→16:35)
[2023-06-14 05:00] VITALS: BP 142/74; PULSE 86; RESP 18; TEMP 98.3; O2SAT 98
[2023-06-14] MEDS: metroNIDAZOLE 500MG/100ML 100 ML IV SCH ×3 (05:43→20:54)
[2023-06-14 06:25] LABS: Basophils # (auto) 0 10 ^3/uL (0-0.2); Basophils % (auto) 0.5 % (0.0-2.0); Eosinophils # (auto) 0.1 10 ^3/uL (0-0.8); Eosinophils % (auto) 1.1 % (0.0-7.0); Hematocrit 37.2 % (36.0-46.0); Hemoglobin 12.7 g/dL (12.2-16.2); Lymphocytes # (auto) 1.4 10 ^3/uL (0.4-5.4); Lymphocytes % (auto) 15.9 % (10.0-50.0); Mean Corpuscular Hemoglobin 30.1 pg (28.0-32.0); Mean Corpuscular Hgb Conc. 34.3 g/dL (32.0-36.0); Mean Corpuscular Volume 87.7 fL (80.0-100.0); Monocytes # (auto) 0.9 10 ^3/uL (0-1.3); Monocytes % (auto) 10.7 % (0.0-12.0); Neutrophils # (auto) 6.2 10 ^3/uL (1.6-8.6); Neutrophils % (auto) 71.8 % (37.0-80.0); Nucleated Red Blood Cells % 0.1 %; Red Blood Cells 4.24 10^6/uL (4.0-5.20); Red Cell Distribution Width 13.5 % (11.8-14.3); White Blood Cell 8.6 10^3/uL (4.4-10.8)
[2023-06-14 06:33] LABS: Alanine Aminotransferase 17 U/L (7-40); Albumin 3.3 g/dL (3.2-4.8); Alkaline Phosphatase 69 U/L (46-116); Anion Gap 13 (5-15); Aspartate Aminotransferase 22 U/L (13-40); BUN/Creatinine Ratio 14.6 (10.0-20.0); Blood Urea Nitrogen 6 mg/dL (9-23); Calcium 8.3 mg/dL (8.5-10.1); Carbon Dioxide 22 mmol/L (20-30); Chloride 107 mmol/L (98-107); Glucose 124 mg/dL (74-106); Potassium 3.5 mmol/L (3.5-5.1); Sodium 142 mmol/L (136-145)
[2023-06-14 06:34] LABS: Bilirubin, Total 0.4 mg/dL (0.2-1.0)
[2023-06-14 06:42] LABS: CRP High Sensitivity 2.77 mg/dL (<1.0)
[2023-06-14] MEDS: VANCOMYCIN 1GM/200ML 250 ML IV SCH ×3 (06:48→22:12)
[2023-06-14 09:00] VITALS: BP 155/86; PULSE 93; RESP 16; TEMP 98.8; O2SAT 97
[2023-06-14] MEDS: ENOXAPARIN SOD 40 MG/0.4 ML SYRINGE SC SCH (09:04)
[2023-06-14] MEDS: cefTRIAXone 1GM/50ML D5W 50 ML IV SCH (09:04)
[2023-06-14] MEDS ORDERED: CLINIMIX PER PHARMACY 0 ML IV SCH (11:15)
[2023-06-14 13:00] VITALS: BP 144/83; PULSE 93; RESP 17; TEMP 98.7; O2SAT 99
[2023-06-14] MEDS ORDERED: HALOPERIDOL LACTATE 5 MG/ML INJ VIAL IM PRN (13:30)
[2023-06-14] MEDS: POTASSIUM CHLORIDE 20 MEQ, LIDOCAINE 1% (LOCAL ANESTH.) 2 ML in SODIUM CHL 0.9% 100 ML IV ONE ×2 (15:54→17:30)
[2023-06-14 16:33] VITALS: BP 106/79; PULSE 92; RESP 17; TEMP 98.6; O2SAT 96
[2023-06-14] MEDS: AMINO ACID INFUSION IN D10W 1,000 ML IV NR (20:31)
[2023-06-14] MEDS: HALOPERIDOL LACTATE 5 MG/ML INJ VIAL IM PRN (20:41)
[2023-06-14 22:00] VITALS: BP 156/76; PULSE 85; RESP 20; TEMP 98.6; O2SAT 93
[2023-06-15 05:00] VITALS: BP 142/76; PULSE 82; RESP 20; O2SAT 95
[2023-06-15] MEDS: metroNIDAZOLE 500MG/100ML 100 ML IV SCH ×3 (05:08→21:27)
[2023-06-15] MEDS: ACCU-CHEK COMFORT CURVE STRIP VI SCH ×4 (05:45→22:59)
[2023-06-15] MEDS: InsuLIN REG 1unit/0.01ml Soln (100units/ml) SC SCH ×4 (05:46→23:00)
[2023-06-15 06:23] LABS: Basophils # (auto) 0 10 ^3/uL (0-0.2); Basophils % (auto) 0.6 % (0.0-2.0); Eosinophils # (auto) 0 10 ^3/uL (0-0.8); Eosinophils % (auto) 0.5 % (0.0-7.0); Hematocrit 37.4 % (36.0-46.0); Hemoglobin 12.7 g/dL (12.2-16.2); Lymphocytes % (auto) 13.4 % (10.0-50.0); Mean Corpuscular Hemoglobin 29.3 pg (28.0-32.0); Mean Corpuscular Hgb Conc. 33.8 g/dL (32.0-36.0); Mean Corpuscular Volume 86.5 fL (80.0-100.0); Monocytes # (auto) 0.9 10 ^3/uL (0-1.3); Monocytes % (auto) 11.1 % (0.0-12.0); Neutrophils # (auto) 5.8 10 ^3/uL (1.6-8.6); Neutrophils % (auto) 74.4 % (37.0-80.0); Red Blood Cells 4.32 10^6/uL (4.0-5.20); Red Cell Distribution Width 13.5 % (11.8-14.3); White Blood Cell 7.7 10^3/uL (4.4-10.8)
[2023-06-15 06:31] LABS: Alanine Aminotransferase 20 U/L (7-40); Alkaline Phosphatase 70 U/L (46-116); Anion Gap 11 (5-15); Blood Urea Nitrogen 9 mg/dL (9-23); Calcium 8.3 mg/dL (8.5-10.1); Carbon Dioxide 24 mmol/L (20-30); Chloride 108 mmol/L (98-107); Glucose 212 mg/dL (74-106); Potassium 3.1 mmol/L (3.5-5.1); Sodium 143 mmol/L (136-145)
[2023-06-15 06:32] LABS: Albumin 3.2 g/dL (3.2-4.8); Aspartate Aminotransferase 31 U/L (13-40); Bilirubin, Total 0.4 mg/dL (0.2-1.0)
[2023-06-15] MEDS: VANCOMYCIN 1GM/200ML 250 ML IV SCH ×3 (06:56→22:36)
[2023-06-15 08:00] VITALS: PULSE 78; RESP 16; O2SAT 96
[2023-06-15 09:00] VITALS: BP 125/51; PULSE 88; RESP 20; TEMP 98.1; O2SAT 93
[2023-06-15] MEDS: cefTRIAXone 1GM/50ML D5W 50 ML IV SCH (09:48)
[2023-06-15] MEDS: SODIUM CHLORIDE 0.9% 1,000 ML IV SCH ×2 (09:49→20:36)
[2023-06-15] MEDS: ENOXAPARIN SOD 40 MG/0.4 ML SYRINGE SC SCH (09:56)
[2023-06-15 13:00] VITALS: BP 124/71; PULSE 87; RESP 17; TEMP 98.1; O2SAT 94
[2023-06-15] MEDS: POTASSIUM CHL 20MEQ/100ML 100 ML IV SCH ×2 (13:11→15:12)
[2023-06-15] MEDS ORDERED: AMINO ACID INFUSION IN D10W 1,000 ML IV NR (20:00)
[2023-06-15] MEDS: AMINO ACID INFUSION IN D10W 1,000 ML IV NR (20:32)
[2023-06-15 22:00] VITALS: BP 126/68; PULSE 80; RESP 18; TEMP 98.7; O2SAT 94
[2023-06-16 05:00] VITALS: BP 131/75; PULSE 82; RESP 17; TEMP 98.9; O2SAT 93
[2023-06-16] MEDS: ACCU-CHEK COMFORT CURVE STRIP VI SCH ×4 (05:13→23:50)
[2023-06-16] MEDS: metroNIDAZOLE 500MG/100ML 100 ML IV SCH ×3 (05:13→21:50)
[2023-06-16] MEDS: HYDROcodone-ACET 5/325MG TAB PO PRN ×2 (05:20→09:41)
[2023-06-16] MEDS: InsuLIN REG 1unit/0.01ml Soln (100units/ml) SC SCH ×4 (05:24→23:52)
[2023-06-16] MEDS: VANCOMYCIN 1GM/200ML 250 ML IV SCH ×3 (06:28→21:50)
[2023-06-16 06:59] LABS: Basophils # (auto) 0 10 ^3/uL (0-0.2); Basophils % (auto) 0.5 % (0.0-2.0); Eosinophils # (auto) 0.1 10 ^3/uL (0-0.8); Eosinophils % (auto) 1.1 % (0.0-7.0); Hematocrit 38.1 % (36.0-46.0); Lymphocytes # (auto) 1.8 10 ^3/uL (0.4-5.4); Lymphocytes % (auto) 21.3 % (10.0-50.0); Mean Corpuscular Hemoglobin 29.4 pg (28.0-32.0); Mean Corpuscular Hgb Conc. 34.2 g/dL (32.0-36.0); Monocytes # (auto) 0.9 10 ^3/uL (0-1.3); Monocytes % (auto) 10.4 % (0.0-12.0); Neutrophils # (auto) 5.5 10 ^3/uL (1.6-8.6); Neutrophils % (auto) 66.7 % (37.0-80.0); Red Blood Cells 4.43 10^6/uL (4.0-5.20); Red Cell Distribution Width 13.2 % (11.8-14.3); White Blood Cell 8.2 10^3/uL (4.4-10.8)
[2023-06-16 07:07] LABS: Alanine Aminotransferase 17 U/L (7-40); Albumin 3.4 g/dL (3.2-4.8); Alkaline Phosphatase 67 U/L (46-116); Calcium 8.1 mg/dL (8.7-10.4); Carbon Dioxide 24 mmol/L (20-30); Chloride 106 mmol/L (98-107); Glucose 201 mg/dL (74-106); Lipase 46 U/L (12-53); Magnesium 1.7 mg/dL (1.6-2.6); Potassium 2.9 mmol/L (3.5-5.1)
[2023-06-16 07:08] LABS: Anion Gap 8 (5-15); Aspartate Aminotransferase 27 U/L (13-40); Bilirubin, Total 0.5 mg/dL (0.2-1.0); Blood Urea Nitrogen 6 mg/dL (9-23); Phosphorus 2.4 mg/dL (2.4-5.1); Sodium 138 mmol/L (136-145); Total Protein 6.3 g/dL (5.7-8.2)
[2023-06-16 08:00] VITALS: PULSE 82; RESP 18
[2023-06-16] MEDS ORDERED: CALCIUM GLUC 1,000mg/50ml-NS 50 ML IV ONE (08:00)
[2023-06-16] MEDS ORDERED: POTASSIUM CHLORIDE 60 MEQ, LIDOCAINE 1% (LOCAL ANESTH.) 6 ML in SODIUM CHL 0.9% 500 ML IV ONE (08:00)
[2023-06-16 09:00] VITALS: BP 129/74; PULSE 86; RESP 18; TEMP 98.4; O2SAT 96
[2023-06-16] MEDS: ENOXAPARIN SOD 40 MG/0.4 ML SYRINGE SC SCH (09:41)
[2023-06-16] MEDS: cefTRIAXone 1GM/50ML D5W 50 ML IV SCH (09:41)
[2023-06-16] MEDS: HALOPERIDOL LACTATE 5 MG/ML INJ VIAL IM PRN (10:53)
[2023-06-16 13:00] VITALS: BP 140/70; PULSE 85; RESP 18; TEMP 98.4; O2SAT 95
[2023-06-16 17:00] VITALS: BP 121/65; PULSE 61; RESP 16; TEMP 97.8; O2SAT 95
[2023-06-16] MEDS: SODIUM CHLORIDE 0.9% 1,000 ML IV SCH (18:35)
[2023-06-17] MEDS: metroNIDAZOLE 500MG/100ML 100 ML IV SCH ×3 (05:59→21:37)
[2023-06-17] MEDS: InsuLIN REG 1unit/0.01ml Soln (100units/ml) SC SCH ×4 (06:02→23:36)
[2023-06-17] MEDS: VANCOMYCIN 1GM/200ML 250 ML IV SCH (06:02)
[2023-06-17] MEDS: ACCU-CHEK COMFORT CURVE STRIP VI SCH ×4 (06:03→23:36)
[2023-06-17 07:17] LABS: Basophils # (auto) 0 10 ^3/uL (0-0.2); Basophils % (auto) 0.5 % (0.0-2.0); Eosinophils # (auto) 0.1 10 ^3/uL (0-0.8); Eosinophils % (auto) 0.8 % (0.0-7.0); Hematocrit 35.5 % (36.0-46.0); Hemoglobin 11.9 g/dL (12.2-16.2); Lymphocytes # (auto) 1.3 10 ^3/uL (0.4-5.4); Lymphocytes % (auto) 17.1 % (10.0-50.0); Mean Corpuscular Hemoglobin 28.9 pg (28.0-32.0); Mean Corpuscular Hgb Conc. 33.5 g/dL (32.0-36.0); Mean Corpuscular Volume 86.2 fL (80.0-100.0); Monocytes % (auto) 12.8 % (0.0-12.0); Neutrophils # (auto) 5.3 10 ^3/uL (1.6-8.6); Neutrophils % (auto) 68.8 % (37.0-80.0); Red Blood Cells 4.13 10^6/uL (4.0-5.20); Red Cell Distribution Width 13.4 % (11.8-14.3); White Blood Cell 7.7 10^3/uL (4.4-10.8)
[2023-06-17 07:24] LABS: Alanine Aminotransferase 12 U/L (7-40); Alkaline Phosphatase 64 U/L (46-116); Anion Gap 9 (5-15); BUN/Creatinine Ratio 7.4 (10.0-20.0); Blood Urea Nitrogen 5 mg/dL (9-23); Calcium 8.4 mg/dL (8.5-10.1); Carbon Dioxide 24 mmol/L (20-30); Chloride 108 mmol/L (98-107); Glucose 141 mg/dL (74-106); Potassium 2.8 mmol/L (3.5-5.1); Sodium 141 mmol/L (136-145)
[2023-06-17 07:25] LABS: Albumin 3.1 g/dL (3.2-4.8); Aspartate Aminotransferase 24 U/L (13-40); Bilirubin, Total 0.4 mg/dL (0.2-1.0); Total Protein 5.9 g/dL (5.7-8.2)
[2023-06-17 07:33] LABS: CRP High Sensitivity 1.47 mg/dL (<1.0)
[2023-06-17 08:00] VITALS: BP 144/85; PULSE 89; RESP 16; TEMP 98.3; O2SAT 96; O2SAT 97
[2023-06-17] MEDS ORDERED: POTASSIUM CHLORIDE 60 MEQ, LIDOCAINE 1% (LOCAL ANESTH.) 6 ML in SODIUM CHL 0.9% 500 ML IV ONE (08:30)
[2023-06-17] MEDS ORDERED: POTASSIUM EFFERVESENT TAB 25 MEQ PO ONE (08:30)
[2023-06-17] MEDS: cefTRIAXone 1GM/50ML D5W 50 ML IV SCH (09:24)
[2023-06-17] MEDS: HALOPERIDOL LACTATE 5 MG/ML INJ VIAL IM PRN (09:25)
[2023-06-17] MEDS: ENOXAPARIN SOD 40 MG/0.4 ML SYRINGE SC SCH (09:25)
[2023-06-17] MEDS: SODIUM CHLORIDE 0.9% 1,000 ML IV SCH ×2 (11:15→21:39)
[2023-06-17 12:00] VITALS: BP 116/68; PULSE 92; RESP 16; TEMP 98.3; O2SAT 97
[2023-06-17 16:00] VITALS: BP 146/72; PULSE 92; RESP 16; TEMP 98.5; O2SAT 98
[2023-06-17 22:00] VITALS: BP 135/72; PULSE 86; RESP 19; TEMP 98.2; O2SAT 94
[2023-06-18 05:00] VITALS: BP 119/62; PULSE 86; RESP 22; TEMP 97.8; O2SAT 96
[2023-06-18] MEDS: ACCU-CHEK COMFORT CURVE STRIP VI SCH ×2 (05:30→11:27)
[2023-06-18] MEDS: metroNIDAZOLE 500MG/100ML 100 ML IV SCH (05:30)
[2023-06-18] MEDS: InsuLIN REG 1unit/0.01ml Soln (100units/ml) SC SCH ×2 (05:37→11:28)
[2023-06-18 06:23] LABS: Basophils # (auto) 0 10 ^3/uL (0-0.2); Basophils % (auto) 0.4 % (0.0-2.0); Eosinophils # (auto) 0.1 10 ^3/uL (0-0.8); Eosinophils % (auto) 0.9 % (0.0-7.0); Hemoglobin 12.3 g/dL (12.2-16.2); Lymphocytes # (auto) 1.1 10 ^3/uL (0.4-5.4); Lymphocytes % (auto) 15.1 % (10.0-50.0); Mean Corpuscular Hemoglobin 29.4 pg (28.0-32.0); Mean Corpuscular Hgb Conc. 34.2 g/dL (32.0-36.0); Mean Corpuscular Volume 85.8 fL (80.0-100.0); Monocytes # (auto) 0.9 10 ^3/uL (0-1.3); Monocytes % (auto) 12.1 % (0.0-12.0); Neutrophils # (auto) 5.4 10 ^3/uL (1.6-8.6); Neutrophils % (auto) 71.5 % (37.0-80.0); Red Cell Distribution Width 13.3 % (11.8-14.3); White Blood Cell 7.5 10^3/uL (4.4-10.8)
[2023-06-18 06:33] LABS: Alanine Aminotransferase 14 U/L (7-40); Albumin 3.4 g/dL (3.2-4.8); Alkaline Phosphatase 65 U/L (46-116); Anion Gap 9 (5-15); Aspartate Aminotransferase 29 U/L (13-40); BUN/Creatinine Ratio 6.1 (10.0-20.0); Blood Urea Nitrogen 6 mg/dL (9-23); Calcium 8.4 mg/dL (8.5-10.1); Carbon Dioxide 24 mmol/L (20-30); Chloride 107 mmol/L (98-107); Glucose 159 mg/dL (74-106); Potassium 3.1 mmol/L (3.5-5.1); Sodium 140 mmol/L (136-145)
[2023-06-18 06:34] LABS: Bilirubin, Total 0.4 mg/dL (0.2-1.0); Total Protein 6.4 g/dL (5.7-8.2)
[2023-06-18] MEDS ORDERED: POTASSIUM CHLORIDE 60 MEQ, LIDOCAINE 1% (LOCAL ANESTH.) 6 ML in SODIUM CHL 0.9% 500 ML IV ONE (07:30)
[2023-06-18] MEDS ORDERED: POTASSIUM EFFERVESENT TAB 25 MEQ PO ONE (07:30)
[2023-06-18 08:10] VITALS: BP 125/70; PULSE 98; RESP 17; TEMP 97.9
[2023-06-18] MEDS: cefTRIAXone 1GM/50ML D5W 50 ML IV SCH (08:50)
[2023-06-18] MEDS ORDERED: HALOPERIDOL 1 MG TAB PO PRN (09:00)
[2023-06-18] MEDS: ENOXAPARIN SOD 40 MG/0.4 ML SYRINGE SC SCH (10:50)
[2023-06-18] MEDS ORDERED: HAL5T PO (12:36)
[2023-06-18] MEDS ORDERED: MET500T PO (12:36)
[2023-06-18] MEDS ORDERED: LEVO500T91 PO (12:36)
[2023-06-18] MEDS ORDERED: POTA-228 PO (12:37)
[2023-06-18 13:23] VITALS: BP 125/70; PULSE 98; RESP 17; TEMP 97.9; O2SAT 98
== END 2023-06-18 14:05 | disposition home or self-care (01) | DRG 249 ==
LOC: ER 22:28 → OVERFLOW 06-11 05:08 → CENTRAL 06-11 18:06
PROVIDERS: ADMIT Internal Medicine; ATTEND Internal Medicine
DX: K52.9 Noninfective gastroenteritis and colitis, unspecified (principal); N17.0 Acute kidney failure with tubular necrosis; G93.41 Metabolic encephalopathy; E87.1 Hypo-osmolality and hyponatremia; E11.65 Type 2 diabetes mellitus with hyperglycemia; F31.9 Bipolar disorder, unspecified; Z20.822 Contact with and (suspected) exposure to COVID-19; Z82.49 Family history of ischemic heart disease and other diseases of the circulatory system; Z83.3 Family history of diabetes mellitus; Z90.49 Acquired absence of other specified parts of digestive tract; N73.9 Female pelvic inflammatory disease, unspecified
CPT/HCPCS: 36415; 36600; 70450; 71045; 74177; 80048; 80053; 80061; 80202; 80307; 80320; 80329; 81001; 82010; 82140; 82306; 82607; 82805; 82962; 83036; 83605; 83690; 83735; 84100; 84443; 84484; 85025; 85610; 85652; 85730; 86141; 87040; 87081; 87086; 87426; 93005; 96365; 96367; 96372; 96375; 97110; 97116; 97163; 97530; G0378; J0696; J1815; J2001; J2405; J2543; J3480; J3490; J7060

== ENCOUNTER 2025-02-28 21:53 | Emergency (ER) | payer OTHER ==
[~2025-02-28] VITALS: Ht 165.1 cm; Wt 77.2 kg
[~2025-02-28 21:53] MED LIST changes: +HAL5T PO; +MET500T PO; +POTA-228 PO
[2025-02-28 21:55] VITALS: RESP 18
[2025-03-01] MEDS ORDERED: ACET500T58 PO (01:30)
[2025-03-01] MEDS ORDERED: CIPR1SUS8 RIGHT EAR (01:30)
[2025-03-01 01:31] VITALS: BP 149/80; PULSE 74; TEMP 98.9; O2SAT 95
--- NOTE | 2025-03-01 01:31 | ED.PDOC ---
Eye-HPI HPI Comments 64-year-old female presents to ER with complaints of right-sided earache pain x5 days. Patient reports she has been experiencing right-sided earache pain and yellow drainage from right ear s/p having a right ear lavage done 5 days ago. She rates her current right-sided earache pain an 8/10. Denies use of medications for current symptoms and presents to ER ambulatory on arrival, with steady gait, in no distress. Denies fever, dizziness, skin changes, hearing changes, headache or any further symptoms/complaints Chief Complaint: Earache Time Seen by MD: 23:45 Primary Care Provider: [facility] Reviewed Notes: Nurses Notes, Medications, Allergies Allergies: Coded Allergies: NO KNOWN ALLERGIES (Unverified , 05/31/23) Home Meds Active Scripts Ciprofloxacin-Dexamethasone (Ciprofloxacin/Dexamethaso 0.3-0.1 %) 1 Ban Ban, 4 DROP RIGHT EAR BID for 7 Days, #1 BOTTLE 0 Refills Prov:DIONNE JULES 03/01/25 Acetaminophen (Acetaminophen) 500 Mg Tab, 500 MG PO Q4HPRN, #30 TAB 0 Refills Prov:DIONNE JULES 03/01/25 Potassium Chloride (Potassium Chloride ER) 10 Meq Tab, 10 MEQ PO DAILY for 10 Days, #10 TAB Prov:JOSÉ MONACO MD 06/18/23 Haloperidol (Haldol) 5 Mg Tb, 0.5 TAB PO BID, #30 TAB Prov:JOSÉ MONACO MD 06/18/23 Metronidazole (Metronidazole) 500 Mg Tab, 500 MG PO TID for 7 Days, #21 TAB Prov:JOSÉ MONACO MD 06/18/23 Levofloxacin Hemihydrate (LEVAQUIN 500 MG) 500 Mg Tab, 500 MG PO DAILY for 7 Days, #7 TAB Prov:JOSÉ MONACO MD 06/18/23 Metformin Hydrochloride (METFORMIN HCL ER) 1,000 Mg Tab, 1 TAB PO BID, #180 TAB 1 Refill Prov:BEN GEORGE MD 06/07/23 Hydrocodone-Acetaminophen (Hydrocodone Bitartrate/AC 5-325 mg) 1 Tab Tab, 1 TAB PO QID PRN, #30 TAB Prov:BEN GEORGE MD 06/07/23 Metronidazole (Flagyl) 500 Mg Tab, 1 TAB PO TID, #30 TAB Prov:BEN GEORGE MD 06/07/23 Levofloxacin Hemihydrate (LEVAQUIN 500 MG) 500 Mg Tab, 1 TAB PO DAILY, #7 TAB Prov:BEN GEORGE MD 06/07/23 Information Source: Patient Mode of Arrival: Ambulatory Past Medical History PAST MEDICAL HISTORY: DM Surgical History: Denies all surgeries DRAFTING SUPERVISOR History: 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 History Family History Family History: Unknown Social History Smoker: Non-Smoker Alcohol: Denies ETOH Use Drugs: Denies Drug Use Lives In: Home Constitutional: denies: chills, diaphoresis, fatigue, fever, malaise, sweats, weakness, others EENTM: reports: others (As stated in HPI) Respiratory: denies: cough, hemoptysis, orthopnea, SOB at rest, shortness of breath, SOB with excertion, stridor, wheezing, others Cardiovascular: denies: chest pain, dizzy spells, diaphoresis, Dyspnea on exertion, edema, irregular heart beat, left arm pain, lightheadedness, palpitations, PND, syncope, others Gastrointestinal: denies: abdomen distended, abdominal pain, blood streaked bowels, constipated, diarrhea, dysphagia, difficulty swallowing, hematemesis, melena, nausea, poor appetite, poor fluid intake, rectal bleeding, rectal pain, vomiting, others Genitourinary: denies: abnormal vagina bleeding, burning, dyspareunia, dysuria, flank pain, frequency, hematuria, incontinence, pain, , vagina discharge, urgency, others Neurological: denies: dizziness, fainting, headache, left sided numbness, left sided weakness, numbness, paresthesia, pre-existing deficit, right sided numbness, right sided weakness, seizure, speech problems, tingling, tremors, weakness, others Musculoskeletal: denies: back pain, gout, joint pain, joint swelling, muscle pain, muscle stiffness, neck pain, others Integumetry: denies: bruises, change in color, change in hair/nails, dryness, laceration, lesions, lumps, rash, wounds, others Allergic/Immunocompromised: denies: Difficulty Healing, Frequent Infections, Hives, Itching, others Hematologic/Lymphatic: denies: anemia, blood clots, easy bleeding, easy bruising, swollen glands, others Endocrine: denies: excessive hunger, excessive sweating, excessive thirst, excessive urination, flushing, intolerance to cold, intolerance to heat, unexplained weight gain, unexplained weight loss, others Psychiatric: denies: anxiety, bipolar disorder, depression, hopeless, panic disorder, schizophrenia, sleepless, suicidal, others Physical Exam General Appearance: No Apparent Distress HEENT: PERRL/EOMI, Pharynx Normal, TMs Normal, Other (Mild erythema/swelling and minimal yellow purulent drainage noted from right middle ear canal, right T M-normal. No TTP to right mastoid process noted. Remainder bilateral ear exam- unremarkable) Neck: Full Range of Motion, Non-Tender, Normal Respiratory: Chest Non-Tender, Lungs Clear, No Accessory Muscle Use, No Respiratory Distress, Normal Breath Sounds Cardiovascular: No Murmur, No Gallop, Regular Rate/Rhythm Breast Exam: Deferred Gastrointestinal: NOT DONE Genitalia: Deferred Pelvic: Deferred Rectal: Deferred Extremities: Normal capillary refill, Normal range of motion Neurologic: Alert, milk powder grinder II-XII nml as Tested, No Motor Deficits, Normal Affect, Normal Mood, No Sensory Deficits Cerebellar Function: Normal Reflexes: Normal Skin: Dry, Normal Color, Warm Lymphatic: No Adenopathy Was a procedure done? Was a procedure done?: No Sedation Sedation?: No EENT DIFF Eye: N/A Ear: Abrasion, Cerumen Impaction, Foreign Body, Otitis Media, Perforation X-Ray, Labs, Meds, VS Vital Signs Date Time Temp Pulse Resp B/P (MAP) Pulse Ox O2 Delivery O2 Flow Rate FiO2 03/01/25 01:31 98.9 74 149/80 (103) 95 98.9 03/01/25 01:31 74 95 Room Air 02/28/25 21:55 98.2 78 18 159/78 94 98.2 Patient in no distress during ER visit/prior to discharge Advised to keep ear canal dry Advised to follow up with PCP in 1-2 days Patient verbalized understanding and agreeable with current plan of care Advised to return to ER immediately if symptoms worsen Time of 1ST Reevaluation: 01:02 Reevaluation 1ST: N/A Patient Education/Counseling: Diagnosis, Treatment, Prognosis, Need For Follow Up Family Education/Counseling: No Family Present SEPSIS Sepsis Screen Date sepsis recognized/suspect: Feb 28, 2025 Time Sepsis recognized/suspect: 2154 Recent Procedure: No On Antibiotic Therapy: No Respiratory Rate >20: No Heart Rate >90: No Temp<36 C (96.8 F) or >38.3 C: No SBP <90 or MAP <65 mmHG: No New Acute Mental Status Change: No Is the patient on CPAP, BIPAP,: No Vital Signs Date Time Temp Pulse Resp B/P (MAP) Pulse Ox O2 Delivery O2 Flow Rate FiO2 03/01/25 01:31 98.9 74 149/80 (103) 95 98.9 03/01/25 01:31 74 95 Room Air 02/28/25 21:55 98.2 78 18 159/78 94 98.2 Departure 1 Departure Time of Disposition: 01:22 Impression: Primary Impression: Otitis externa of right ear Qualified Codes: H60.501 - Unspecified acute noninfective otitis externa, right ear Disposition: HOME / SELF CARE / HOMELESS Condition: Stable e-Prescriptions Ciprofloxacin-Dexamethasone (Ciprofloxacin/Dexamethaso 0.3-0.1 %) 1 Ban Ban 4 DROP RIGHT EAR BID for 7 Days, #1 BOTTLE 0 Refills Prov: DIONNE JULES 03/01/25 Acetaminophen (Acetaminophen) 500 Mg Tab 500 MG PO Q4HPRN, #30 TAB 0 Refills Prov: DIONNE JULES 03/01/25 Discharged With: Self Critical Care Note Critical Care Time?: No Stability Stability form required: No Heart Score Heart Score: Heart Score Response (Comments) Value History N/A 0 EKG N/A 0 Age N/A 0 Risk Factors N/A 0 Troponin N/A 0 Total 0 DIONNE JULES Mar 01, 2025 01:31
== END 2025-03-01 01:45 | disposition home or self-care (01) ==
LOC: ER 21:53
DX: H60.91 Unspecified otitis externa, right ear (principal); E11.9 Type 2 diabetes mellitus without complications; Z79.899 Other long term (current) drug therapy; Z79.84 Long term (current) use of oral hypoglycemic drugs